=== PATIENT | female | born 1990 | race Caucasian/White ===

== ENCOUNTER → 2017-04-30 | Outpatient (CLI) | payer BC, OTHER ==
[~2017-04-30] MED LIST: AMOXICILLIN 25250 MG PO; DIABETA2.5 MG PO; LABETALOL HCL200 MG PO; PRENATAL PLUS1 TA1 PO
[2017-04-30 11:51] LABS: URINE COLLECTION TIME 24 HOURS
[2017-04-30 11:52] LABS: URINE TOTAL PROTEIN CONC 248 mg/24 HR (40-90)
== END ==
LOC: LAB 11:17
PROVIDERS: Nurse Practitioner Obstetrics & Gynecology
DX: O13.9 Gestational [pregnancy-induced] hypertension without significant proteinuria, unspecified trimester (principal)

== ENCOUNTER 2017-05-01 09:01 | Observation (INO) | payer BC, OTHER ==
[~2017-05-01] VITALS: Ht 152.4 cm; Wt 82.1 kg
[2017-05-01] VITALS (14 sets, daily range): BP systolic 117–161; BP diastolic 59–101
[~2017-05-01 09:01] MED LIST changes: -LABETALOL HCL200 MG PO; -PRENATAL PLUS1 TA1 PO
[2017-05-01] MEDS ORDERED: PRENATAL PLUS1 TA1 PO (09:28)
[2017-05-01 09:54] LABS: HEMOGLOBIN 12.3 g/dL (12.2-16.2); LYMPH # 1.8 K/mm3 (0.7-4.5); LYMPH % 17.9 % (10-50.0)
[2017-05-01 10:07] LABS: ABO BLOOD TYPE O; RH BLOOD TYPE POSITIVE
[2017-05-02 01:31] VITALS: BP 119/67
--- NOTE | 2017-05-02 08:01 | ACUTE CARE PROGRESS NOTE (QUA) ---
Progress Notes Subjective Date 05/02/17 Time 0759 Note She seems to be doing a little better this morning. She is eating and drinking and ambulating. Her headache has completely resolved. Her blood pressures have normalized. She is taking labetalol 200 mg twice a day. All of her lab work was normal as well. Patient/family reports: feeling better, no complaints Objective Findings Last VS-Temp:98.3 B/P:119/67 Pulse:72 Resp:17 SaO2: Last weight lbs:181 oz:0 K.101 Method:Floor Scales Laboratory Tests 05/02/17 0622: POC Glucose 132 H 05/01/17 0940: MCH 30.9 05/01/17 0940: Sodium 136, Potassium 3.8, Chloride 103, Carbon Dioxide 24, BUN 7, Creatinine 0.4 L, Estimated Creat Clear 274 H, Estimated GFR (MDRD) 191, Glucose 117 H, Uric Acid 4.5, Calcium 8.9, AST 28, ALT 38, PT 9.4, INR 0.87 L, APTT 24.7, Fibrinogen 500.0 H, D-Dimer 982 *H, WBC 10.2, RBC 3.98 L, Hgb 12.3, Hct 35.9 L, MCV 90.1, RDW 12.6, Plt Count 229, MPV 9.1, Gran % 76.2, Gran # 7.8, Lymphocytes % 17.9, Monocytes % 5.1, Eosinophils % 0.8, Basophils % 0.1, Lymphocytes # 1.8, Monocytes # 0.5, Eosinophils # 0.1, Basophils # 0.0, PUBS MCHC 34.3, Antibody Screen NEGATIVE, Miscellaneous Test POSITIVE Exam General appearance: normal appearance, alert, awake, no acute distress Reviewed: vital signs, lab results Assessment/Plan Problem List 1. induced hypertension, antepartum Patient condition Stable Plan: continue current care, initiate discharge plan This inpt stay is expected to cross 2 MNs from start of care No Comments: All of her blood work is normal. Her blood pressures of now stabilized on bed rest and labetalol 200 mg twice a day. We will plan to send her home today. I'll follow up with her in 48 hours. at 0801
[2017-05-02 08:03] VITALS: BP 130/78
--- NOTE | 2017-05-02 08:04 | Discharge Summary ---
Discharge Summary Admission date: 05/01/17 Discharge date: 05/02/17 Discharge diagnoses: Mild -induced hypertension, chronic hypertension Clinical note: She is a 26-year-old 1 now para 0 who was 33 weeks gestational age. She was seen in my office with a headache and her blood pressure was elevated in the 160/100 range. As result of that we elected to admit her for -induced hypertension workup. Course in hospital: She had a 24-hour urine that showed a normal amount of protein in the urine. All of her blood work was normal. She started labetalol 200 mg twice a day and her blood pressures are now in the 110-120/60-70 range. Her headache has completely resolved. Her reflexes are normal. There was no clonus. Since she's doing better today. We will plan to send her home. She also received steroids while hospitalized. Plans for ongoing care: She is discharged home to follow-up with me in approximately 48 hours time. Discharge medications She'll continue with her vitamins and iron. She was given a perception for labetalol 200 mg twice daily. DC/follow-up instructions She will continue on bedrest and will follow up with me. Condition at discharge Stable and improved at 0803
[2017-05-02] MEDS ORDERED: LABETALOL HCL200 MG PO (08:05)
--- OUTSIDE RECORDS SUMMARY | 2017-05-24 02:57 | External Medical Summary Rpt ---
Author Author [employer] Organization [employer] Address Unknown Phone Unavailable Purpose Continuity of Care Document - through 2016
--- OUTSIDE RECORDS SUMMARY | 2017-05-24 02:57 | External Medical Summary Rpt ---
Author Author , MADY EARL Address Unknown Phone [email or web address] Purpose Continuity of Care Document - 03-22-2017 through 2016 Problems Code Diagnosis DOS Provider Status O24.419 Gestational diabetes mellitus in , unspecified control Results Labs Lab Lab Date Result Refere Interp Status Commen Order Detail nces retati t Range on Urinalysis dipstick W Reflex Microscopic panel in Urine (05-17-2017 16:04) Amorpho 1+ NONE complet us 017 ed sedimen 16:04 t [Presen ce] in Urine sedimen t by Light microsc opy Bacteri 1+ O complet a 017 ed [Presen 16:04 ce] in Urine sedimen t by Light microsc opy Erythro 5-10 0 complet cytes 017 ed [Presen 16:04 ce] in Urine sedimen t by Light microsc opy Epithel OCC 0#/hp complet ial 017 f - ed cells.s 16:04 5#/hp quamous f [Presen ce] in Urine sedimen t by Microsc opy high power field Urinalysis dipstick W Reflex Microscopic panel in Urine (05-17-2017 16:04) Appeara CLEAR CLEAR complet nce of 017 ed Urine 16:04 Bilirub NEGATIV NEG complet in 017 E ed [Presen 16:04 ce] in Urine by Test strip Erythro TRACE-L NEG complet cytes 017 YSED ed [Presen 16:04 ce] in Urine Color YELLOW YELLOW complet of 017 ed Urine 16:04 Ketones NEGATIV NEG complet 017 E ed [Presen 16:04 ce] in Urine by Automat ed test strip Mucus NEGATIV NEG complet [Presen 017 E ed ce] in 16:04 Urine sedimen t by Light microsc opy Nitrite NEGATIV NEG complet 017 E ed [Presen 16:04 ce] in Urine by Test strip Urobili 05-17-2 0.2 NEG complet nogen 017 ed [Presen 16:04 ce] in Urine by Test strip Blood type & Indirect antibody screen panel in Blood (05-01-2017 09:40) Blood 05-01- NEGATIV NEGATIV complet group 017 E E ed antibod 09:40 y screen [Presen ce] in Serum or Plasma Rh POSITIV complet [Type] 017 E ed in 09:40 Blood ABO 05-01-2 O complet group 017 ed [Type] 09:40 in Blood Urinalysis dipstick W Reflex Microscopic panel in Urine (04-28-2017 15:40) Bacteri OCC O complet a 017 ed [Presen 15:40 ce] in Urine sedimen t by Light microsc opy Erythro NONE 0 complet cytes 017 ed [Presen 15:40 ce] in Urine sedimen t by Light microsc opy Epithel 10-20 0#/hp complet ial 017 f - ed cells.s 15:40 5#/hp quamous f [Presen ce] in Urine sedimen t by Microsc opy high power field Urinalysis dipstick W Reflex Microscopic panel in Urine (04-28-2017 15:40) Appeara CLEAR CLEAR complet nce of 017 ed Urine 15:40 Bilirub NEGATIV NEG complet in 017 E ed [Presen 15:40 ce] in Urine by Test strip Erythro NEGATIV NEG complet cytes 017 E ed [Presen 15:40 ce] in Urine Color YELLOW YELLOW complet of 017 ed Urine 15:40 Ketones NEGATIV NEG complet 017 E ed [Presen 15:40 ce] in Urine by Automat ed test strip Mucus NEGATIV NEG complet [Presen 017 E ed ce] in 15:40 Urine sedimen t by Light microsc opy Nitrite NEGATIV NEG complet 017 E ed [Presen 15:40 ce] in Urine by Test strip Urobili 0.2 NEG complet nogen 017 ed [Presen 15:40 ce] in Urine by Test strip Influenza virus A+B Ag [Presence] in Unspecified specimen (04-28-2017 15:40) Influen NOT NOT complet za 017 DETECTE DETECTD ed virus A 15:40 D Ag [Presen ce] in Unspeci fied specime n Influen NOT NOT complet za 017 DETECTE DETECTD ed virus B 15:40 D Ag [Presen ce] in Unspeci fied specime n Glucose [Mass/volume] in Serum or Plasma --3 hours post XXX challenge (03-22-2017 07:05) Glucose 1+ complet 017 ed [Presen 07:05 ce] in Urine by Test strip Glucose 3+ complet 017 ed [Presen 07:05 ce] in Urine by Test strip --2 hours post dose glucose Glucose 2+ complet 017 ed [Presen 07:05 ce] in Urine by Test strip --3 hours post dose glucose Glucose NEGATIV complet 017 E ed [Presen 07:05 ce] in Urine by Automat ed test strip
--- OUTSIDE RECORDS SUMMARY | 2017-05-24 02:57 | External Medical Summary Rpt ---
Demographics Preferred Language Upper Sorbian Marital Status Unknown Hindu Affiliation Unknown Race Unknown Ethnic Group Unknown Author MADY Bullock Address Unknown Phone Immunization No patient found.
--- OUTSIDE RECORDS SUMMARY | 2017-05-24 02:57 | External Medical Summary Rpt ---
Demographics Preferred Language Frisian Marital Status Unknown Gnosticist Affiliation Unknown Race Unknown Ethnic Group Unknown Author MADY Bullock Address Unknown Phone Immunization No patient found.
--- OUTSIDE RECORDS SUMMARY | 2017-05-24 02:57 | External Medical Summary Rpt ---
Author Author , MADY EARL Address Unknown Phone [email or web address] Purpose Continuity of Care Document - 03-22-2017 [...]
--- OUTSIDE RECORDS SUMMARY | 2017-05-24 02:59 | External Medical Summary Rpt ---
Author Author [facility] Kateryna, [employer] Address Unknown Phone Unavailable Results Creatinine 24H renal clearance panel Observa Value Referen Units Interpr Notes Date tion ce etation Range Creatinin 0.55 - mg/dL Low No Oct 5 e 1.02 informati 2017 9:37 [Mass/vol on in AM ume] in source Serum or data Plasma Creatinin 600 - mg/24HR Normal No Oct 5 e 1600 informati 2016 9:37 [Mass/vol on in AM ume] in source Urine data Creatine No mg/dL Normal No Oct 5 [Mass/vol informati informati 2017 9:37 ume] in on in on in AM Urine source source data data Creatinin 70 - 156 ml/min No No Oct 5 e renal informati informati 2017 9:37 clearance on in on in AM in source source unspecifi data data ed time Creatinin No HOURS No No Oct 5 e renal informati informati informati 2016 9:37 clearance on in on in on in AM in source source source unspecifi data data data ed time Volume of 600 - mL Normal No Oct 5 Urine 1600 informati 2016 9:37 on in AM source data Protein [Mass/time] in 24 hour Urine Observa Value Referen Units Interpr Notes Date tion ce etation Range Creatinin No HOURS No No Oct 5 e renal informati informati informati 2016 9:37 clearance on in on in on in AM in source source source unspecifi data data data ed time Protein 40 - 90 mg/24_HR High No Oct 5 [Mass/vol informati 2016 9:37 ume] in on in AM 24 hour source Urine data Volume of 600 - mL Normal No Oct 5 Urine 1600 informati 2016 9:37 on in AM source data Urinalysis dipstick W Reflex Microscopic panel in Urine Observa Value Referen Units Interpr Notes Date tion ce etation Range Collected by nurse? Y Hold specimen in OE? N Appeara CLEAR CLEAR No No No Oct 4 nce of informa informa informa 2017 Urine tion in tion in tion in 4:04 PM source source source data data data Amorpho 1+ NONE No No No May 17 us informa informa informa 2017 sedimen tion in tion in tion in 4:04 PM t source source source [Presen data data data ce] in Urine sedimen t by Light microsc opy Bacteri 1+ O No No No May 17 a informa informa informa 2016 [Presen tion in tion in tion in 4:04 PM ce] in source source source Urine data data data sedimen t by Light microsc opy Bilirub NEGATIV NEG No No No May 17 in E informa informa informa 2016 [Presen tion in tion in tion in 4:04 PM ce] in source source source Urine data data data by Test strip Erythro TRACE-L NEG No No No May 17 cytes YSED informa informa informa 2016 [Presen tion in tion in tion in 4:04 PM ce] in source source source Urine data data data Color YELLOW YELLOW No No No May 17 of informa informa informa 2016 Urine tion in tion in tion in 4:04 PM source source source data data data Glucose NEG No No No May 17 [Mass/vol informati informati informati 2016 4:04 ume] in on in on in on in PM Urine by source source source Test data data data strip Ketones NEGATIV NEG mg/dL No No May 17 E informa informa 2016 [Presen tion in tion in 4:04 PM ce] in source source Urine data data by Automat ed test strip Mucus NEGATIV NEG No No No May 17 [Presen E informa informa informa 2016 ce] in tion in tion in tion in 4:04 PM Urine source source source sedimen data data data t by Light microsc opy Nitrite NEGATIV NEG No No No May 17 E informa informa informa 2016 [Presen tion in tion in tion in 4:04 PM ce] in source source source Urine data data data by Test strip pH of 5.0 - 8.5 No Normal No May 17 Urine informati informati 2017 4:04 on in on in PM source source data data Protein NEG mg/dL No No May 4 [Mass/vol informati informati 2017 4:04 ume] in on in on in PM Urine by source source Automated data data test strip Erythro 5-10 0 rbc/hpf No No May 17 cytes informa informa 2016 [Presen tion in tion in 4:04 PM ce] in source source Urine data data sedimen t by Light microsc opy Specific 1.005 - No Normal No May 17 gravity 1.030 informati informati 2017 4:04 of Urine on in on in PM source source data data Epithel OCC 0 - 5 #/hpf No No May 17 ial informa informa 2017 cells.s tion in tion in 4:04 PM quamous source source data data [Presen ce] in Urine sedimen t by Microsc opy high power field Urobili 0.2 NEG E.U./dL No No May 17 nogen informa informa 2016 [Presen tion in tion in 4:04 PM ce] in source source Urine data data by Test strip Leukocyte O wbc/hpf No No May 17 s informati informati 2017 4:04 [#/volume on in on in PM ] in source source Urine data data Urinalysis dipstick W Reflex Microscopic panel in Urine Observa Value Referen Units Interpr Notes Date tion ce etation Range Collected by nurse? Y Hold specimen in OE? N Appeara CLEAR CLEAR No No No May 17 nce of informa informa informa 2016 Urine tion in tion in tion in 4:04 PM source source source data data data Bilirub NEGATIV NEG No No No May 17 in E informa informa informa 2016 [Presen tion in tion in tion in 4:04 PM ce] in source source source Urine data data data by Test strip Erythro TRACE-L NEG No No No May 17 cytes YSED informa informa informa 2016 [Presen tion in tion in tion in 4:04 PM ce] in source source source Urine data data data Color YELLOW YELLOW No No No May 17 of informa informa informa 2017 Urine tion in tion in tion in 4:04 PM source source source data data data Glucose NEG No No No May 17 [Mass/vol informati informati informati 2017 4:04 ume] in on in on in on in PM Urine by source source source Test data data data strip Ketones NEGATIV NEG mg/dL No No May 17 E informa informa 2016 [Presen tion in tion in 4:04 PM ce] in source source Urine data data by Automat ed test strip Mucus NEGATIV NEG No No No May 17 [Presen E informa informa informa 2016 ce] in tion in tion in tion in 4:04 PM Urine source source source sedimen data data data t by Light microsc opy Nitrite NEGATIV NEG No No No May 17 E informa informa informa 2016 [Presen tion in tion in tion in 4:04 PM ce] in source source source Urine data data data by Test strip pH of 5.0 - 8.5 No Normal No May 17 Urine informati informati 2017 4:04 on in on in PM source source data data Protein NEG mg/dL No No May 17 [Mass/vol informati informati 2016 4:04 ume] in on in on in PM Urine by source source Automated data data test strip Specific 1.005 - No Normal No May 17 gravity 1.030 informati informati 2016 4:04 of Urine on in on in PM source source data data Urobili 0.2 NEG E.U./dL No No May 17 nogen informa informa 2016 [Presen tion in tion in 4:04 PM ce] in source source Urine data data by Test strip Fibrin D-dimer FEU [Mass/volume] in Platelet poor plasma Observa Value Referen Units Interpr Notes Date ti ce etation Range Fibrin 0 - 400 ng/mL High May 16 D-dimer alert NOTIFICAT 2017 FEU ION 11:55 AM [Mass/vol RESULT ume] in Bria Platelet neThe poor D-Dimer plasma values are presented in units of mass(ng/m L) ofD-Dimer units(DDU ).This test has been FDA approved as an aid in the assessmen tand evaluatio n of suspected DIC, and thromboem bolic eventsinc luding PE and DVT. However, it does not have approvalf or cut-off values for the exclusion of these condition s. Fibrinogen [Mass/volume] in Platelet poor plasma by Coagulation assay Observa Value Referen Units Interpr Notes Date tion ce etation Range Fibrinoge 204.2 - mg/dL High No May 3 n 499.8 informati 2016 [Mass/vol on in 11:55 AM ume] in source Platelet data poor plasma by Coagulati on assay INR in Blood by Coagulation assay Observa Value Referen Units Interpr Notes Date tion ce etation Range INR in 0.9 - 1.1 No Low INDICATIO Oct 3 Blood by informati N 2017 Coagulati on in 11:55 AM on assay source INR data RANGETHER APY FOR DVT, PE, ATRIAL FIB; 2.0 - 3.0PROPHY LAXIS FOR VTETHERAP Y FOR MECHANICA L HEART 2.5 - 3.5VALVE; PREVENTIO N OF SYSTEMICE MBOLISM SECONDARY TO AMI Prothromb 9.4 - SECONDS Low No May 3 in time 11.8 informati 2016 (PT) in on in 11:55 AM Platelet source poor data plasma by Coagulati on assay Activated partial thrombplastin time (aPTT) in Platelet poor plasma by Coagulation assay Observa Value Referen Units Interpr Notes Date tion ce etation Range Activated 23.6 - SECONDS Normal No May 3 partial 34.0 ati 2016 thrombpla on in 11:55 AM stin time source (aPTT) data in Platelet poor plasma by Coagulati on assay Basic metabolic panel in Blood Observa Value Referen Units Interpr Notes Date tion ce etation Range Urea 7 - 18 mg/dL Normal No May 3 nitrogen informati 2016 [Mass/vol on in 11:55 AM ume] in source Serum or data Plasma Calcium 8.5 - mg/dL Normal No May 3 [Mass/vol 10.1 informati 2016 ume] in on in 11:55 AM Serum or source Plasma data Chloride 98 - 107 mmoL/L Normal No May 3 [Moles/vo informati 2017 lume] in on in 11:55 AM Serum or source Plasma data Carbon 21.0 - mmoL/L Normal No May 3 dioxide, 32.0 informati 2016 total on in 11:55 AM [Moles/vo source lume] in data Serum or Plasma Creatinin 0.55 - mg/dL Low No Oct 3 e 1.02 informati 2016 [Mass/vol on in 11:55 AM ume] in source Serum or data Plasma Estimated 59- ML/MIN No REFERENCE Oct 3 informati RANGE: 2017 glomerula on in >60 11:55 AM r source ML/MIN/1. filtratio data 73 SQUARE n rate METERSIf (GF this patient is -A merican, then multiply theresult by 1.210. Glucose 74 - 106 mg/dL Low No May 3 [Mass/vol informati 2016 ume] in on in 11:55 AM Serum or source Plasma data Potassium 3.5 - 5.1 mmoL/L Normal No May 16 inform2016 [Moles/vo on in 11:55 AM lume] in source Serum or data Plasma Sodium 136 - 145 mmoL/L Normal No May 3 [Moles/vo informati 2016 lume] in on in 11:55 AM Serum or source Plasma data Aspartate aminotransferase [Enzymatic activity/volume] in Serum or Plasma Observa Value Referen Units Interpr Notes Date tion ce etation Range Aspartate 15 - 37 U/L Normal No May 16 inform2016 aminotran on in 11:55 AM sferase source [Enzymati data c activity/ volume] in Serum or Plasma Alanine aminotransferase [Enzymatic activity/volume] in Serum or Plasma Observa Value Referen Units Interpr Notes Date tion ce etation Range Alanine 12 - 78 U/L Normal No May 16 aminotran inform2016 sferase on in 11:55 AM [Enzymati source c data activity/ volume] in Serum or Plasma Urate [Mass/volume] in Serum or Plasma Observa Value Referen Units Interpr Notes Date tion ce etation Range Urate 2.6 - 7.2 mg/dL Normal No May 3 [Mass/vol informati 2016 ume] in on in 11:55 AM Serum or source Plasma data CBC W Auto Differential panel in Blood Observa Value Referen Units Interpr Notes Date tion ce etation Range Basophils 0 - 0.2 K/MM3 Normal No May 162016 [#/volume on in 11:55 AM ] in source Blood by data Automated count Basophils 0.1 - 2.0 % Normal No May 16 /100 informati 2016 leukocyte on in 11:55 AM s in source Blood by data Automated count Eosinophi 0.0 - 0.4 K/mm3 Normal No May 16 ls 2016 [#/volume on in 11:55 AM ] in source Blood by data Automated count Eosinophi 0.1 - % Normal No May 16 ls/100 12.0 informati 2016 leukocyte on in 11:55 AM s in source Blood by data Automated count Granulocy 1.8 - 7.8 K/mm3 Normal No May 16 susana inform2016 [#/volume on in 11:55 AM ] in source Blood by data Automated count Granulocy 37.0 - % Normal No May 16 susana/100 80.0 inform2016 leukocyte on in 11:55 AM s in source Blood by data Automated count Hematocri 37.0 - % Normal No May 16 t [Volume 47.0 informati 2016 on in 11:55 AM Fraction] source of Blood data Hemoglobi 12.2 - g/dL Normal No May 16 n 16.2 informati 2016 [Mass/vol on in 11:55 AM ume] in source Blood data Lymphocyt 0.7 - 4.5 K/mm3 Normal No May 16 es inform2016 [#/volume on in 11:55 AM ] in source Unspecifi data ed specimen by Automated count Lymphocyt 10 - 50.0 % Normal No May 16 es inform2016 [#/volume on in 11:55 AM ] in source Unspecifi data ed specimen by Automated count Erythrocy 27 - 31.2 pg Normal No May 16 te mean 2016 corpuscul on in 11:55 AM ar source hemoglobi data n [Entitic mass] Erythrocy 31.8 - g/dl Normal No May 16 te mean 35.4 inform2016 corpuscul on in 11:55 AM ar source hemoglobi data n concentra tion [Mass/vol ume] by Automated count Erythrocy 82.2 - fl Normal No May 16 te mean 97.8 inform2016 corpuscul on in 11:55 AM ar volume source [Entitic data volume] by Automated count Monocytes 0.1 - 1.0 K/mm3 Normal No May 16 inform2016 [#/volume on in 11:55 AM ] in source Blood by data Automated count Monocytes 1.7 - 9.3 % High No May 16 /100 inform2016 leukocyte on in 11:55 AM s in source Blood by data Automated count Platelets 142 - 424 K/mm3 Normal No May 16 inform2016 [#/volume on in 11:55 AM ] in source Blood data Erythrocy 4.2 - 5.4 M/mm3 Low No May 16 susana informati 2016 [#/volume on in 11:55 AM ] in source Amniotic data fluid Erythrocy 11.5 - % Normal No May 16 te 17.5 informati 2016 distribut on in 11:55 AM ion width source [Entitic data volume] by Automated count Leukocyte 4.8 - K/MM3 Normal No May 3 s 10.8 informati 2016 [#/volume on in 11:55 AM ] in source Blood data Glucose [Mass/volume] in Capillary blood by Glucometer Observa Value Referen Units Interpr Notes Date tion ce etation Range Glucose 70 - 110 mg/dl High No Sep 19 [Mass/vol informati 2017 6:22 ume] in on in AM Capillary source blood by data Glucomete r Fibrin D-dimer FEU [Mass/volume] in Platelet poor plasma Observa Value Referen Units Interpr Notes Date tion ce etation Range Fibrin 0 - 400 ng/mL High Apr 18 D-dimer alert NOTIFICAT 2017 9:40 FEU ION AM [Mass/vol RESULT ume] in Bria Platelet neThe poor D-Dimer plasma values are presented in units of mass(ng/m L) ofD-Dimer units(DDU ).This test has been FDA approved as an aid in the assessmen tand evaluatio n of suspected DIC, and thromboem bolic eventsinc luding PE and DVT. However, it does not have approvalf or cut-off values for the exclusion of these condition s. Fibrinogen [Mass/volume] in Platelet poor plasma by Coagulation assay Observa Value Referen Units Interpr Notes Date tion ce etation Range Fibrinoge 204.2 - mg/dL High No Apr 18 n 499.8 informati 2016 9:40 [Mass/vol on in AM ume] in source Platelet data poor plasma by Coagulati on assay INR in Blood by Coagulation assay Observa Value Referen Units Interpr Notes Date tion ce etation Range INR in 0.9 - 1.1 No Low INDICATIO Sep 18 Blood by informati N 2017 9:40 Coagulati on in AM on assay source INR data RANGETHER APY FOR DVT, PE, ATRIAL FIB; 2.0 - 3.0PROPHY LAXIS FOR VTETHERAP Y FOR MECHANICA L HEART 2.5 - 3.5VALVE; PREVENTIO N OF SYSTEMICE MBOLISM SECONDARY TO AMI Prothromb 9.4 - SECONDS Normal No Sep 18 in time 11.8 informati 2017 9:40 (PT) in on in AM Platelet source poor data plasma by Coagulati on assay Activated partial thrombplastin time (aPTT) in Platelet poor plasma by Coagulation assay Observa Value Referen Units Interpr Notes Date tion ce etation Range Activated 23.6 - SECONDS Normal No Sep 18 partial 34.0 informati 2017 9:40 thrombpla on in AM stin time source (aPTT) data in Platelet poor plasma by Coagulati on assay Blood type & Indirect antibody screen panel in Blood Observa Value Referen Units Interpr Notes Date tion ce etation Range Blood NEGATIV NEGATIV No No No Sep 18 group E E informa informa informa 2017 antibod tion in tion in tion in 9:40 AM y source source source screen data data data [Presen ce] in Serum or Plasma Rh POSITIV No No No No Sep 18 [Type] E informa informa informa informa 2017 in tion in tion in tion in tion in 9:40 AM Blood source source source source data data data data ABO O No No No No Sep 18 group informa informa informa informa 2017 [Type] tion in tion in tion in tion in 9:40 AM in source source source source Blood data data data data Basic metabolic panel in Blood Observa Value Referen Units Interpr Notes Date tion ce etation Range Urea 7 - 18 mg/dL No No Sep 18 nitrogen informati informati 2017 9:40 [Mass/vol on in on in AM ume] in source source Serum or data data Plasma Calcium 8.5 - mg/dL Normal No Sep 18 [Mass/vol 10.1 informati 2017 9:40 ume] in on in AM Serum or source Plasma data Chloride 98 - 107 mmoL/L Normal No Sep 18 [Moles/vo informati 2017 9:40 lume] in on in AM Serum or source Plasma data Carbon 21.0 - mmoL/L Normal No Sep 18 dioxide, 32.0 informati 2017 9:40 total on in AM [Moles/vo source lume] in data Serum or Plasma Creatinin 0.55 - mg/dL Low No Sep 18 e 1.02 informati 2017 9:40 [Mass/vol on in AM ume] in source Serum or data Plasma Creatinin 50 - 200 ML/MIN High No Sep 18 e renal informati 2017 9:40 clearance on in AM source predicted data by Cockcroft -Gault formula Estimated 59- ML/MIN No REFERENCE Sep 18 informati RANGE: 2017 9:40 glomerula on in >60 AM r source ML/MIN/1. filtratio data 73 SQUARE n rate METERSIf (GF this patient is -A merican, then multiply theresult by 1.210. Glucose 74 - 106 mg/dL High No Sep 18 [Mass/vol informati 2016 9:40 ume] in on in AM Serum or source Plasma data Potassium 3.5 - 5.1 mmoL/L Normal No Sep 18 informati 2016 9:40 [Moles/vo on in AM lume] in source Serum or data Plasma Sodium 136 - 145 mmoL/L Normal No Sep 18 [Moles/vo informati 2016 9:40 lume] in on in AM Serum or source Plasma data Aspartate aminotransferase [Enzymatic activity/volume] in Serum or Plasma Observa Value Referen Units Interpr Notes Date tion ce etation Range Aspartate 15 - 37 U/L Normal No Sep 18 inform2016 9:40 aminotran on in AM sferase source [Enzymati data c activity/ volume] in Serum or Plasma Alanine aminotransferase [Enzymatic activity/volume] in Serum or Plasma Observa Value Referen Units Interpr Notes Date tion ce etation Range Alanine 12 - 78 U/L Normal No Sep 18 aminotran informati 2016 9:40 sferase on in AM [Enzymati source c data activity/ volume] in Serum or Plasma Urate [Mass/volume] in Serum or Plasma Observa Value Referen Units Interpr Notes Date tion ce etation Range Urate 2.6 - 7.2 mg/dL Normal No Sep 18 [Mass/vol informati 2016 9:40 ume] in on in AM Serum or source Plasma data CBC W Auto Differential panel in Blood Observa Value Referen Units Interpr Notes Date tion ce etation Range Basophils 0 - 0.2 K/MM3 Normal No Sep 18 informati 2016 9:40 [#/volume on in AM ] in source Blood by data Automated count Basophils 0.1 - 2.0 % Normal No Sep 18 /100 informati 2016 9:40 leukocyte on in AM s in source Blood by data Automated count Eosinophi 0.0 - 0.4 K/mm3 Normal No Sep 18 ls informati 2016 9:40 [#/volume on in AM ] in source Blood by data Automated count Eosinophi 0.1 - % Normal No Sep 18 ls/100 12.0 informati 2017 9:40 leukocyte on in AM s in source Blood by data Automated count Granulocy 1.8 - 7.8 K/mm3 Normal No Sep 18 susana informati 2017 9:40 [#/volume on in AM ] in source Blood by data Automated count Granulocy 37.0 - % Normal No Sep 18 susana/100 80.0 informati 2016 9:40 leukocyte on in AM s in source Blood by data Automated count Hematocri 37.0 - % Low No Sep 18 t [Volume 47.0 informati 2017 9:40 on in AM Fraction] source of Blood data Hemoglobi 12.2 - g/dL Normal No Sep 18 n 16.2 informati 2017 9:40 [Mass/vol on in AM ume] in source Blood data Lymphocyt 0.7 - 4.5 K/mm3 Normal No Sep 18 es informati 2017 9:40 [#/volume on in AM ] in source Unspecifi data ed specimen by Automated count Lymphocyt 10 - 50.0 % Normal No Sep 18 es informati 2017 9:40 [#/volume on in AM ] in source Unspecifi data ed specimen by Automated count Erythrocy 27 - 31.2 pg Normal No Sep 18 te mean informati 2017 9:40 corpuscul on in AM ar source hemoglobi data n [Entitic mass] Erythrocy 31.8 - g/dl Normal No Sep 18 te mean 35.4 informati 2017 9:40 corpuscul on in AM ar source hemoglobi data n concentra tion [Mass/vol ume] by Automated count Erythrocy 82.2 - fl Normal No Sep 18 te mean 97.8 informati 2016 9:40 corpuscul on in AM ar volume source [Entitic data volume] by Automated count Monocytes 0.1 - 1.0 K/mm3 Normal No Sep 18 informati 2017 9:40 [#/volume on in AM ] in source Blood by data Automated count Monocytes 1.7 - 9.3 % Normal No Sep 18 /100 informati 2016 9:40 leukocyte on in AM s in source Blood by data Automated count Platelet 7.4 - fl Normal No Sep 18 mean 10.4 informati 2016 9:40 volume on in AM [Entitic source volume] data in Blood by Automated count Platelets 142 - 424 K/mm3 Normal No Sep 18 informati 2017 9:40 [#/volume on in AM ] in source Blood data Erythrocy 4.2 - 5.4 M/mm3 Low No Sep 18 susana informati 2017 9:40 [#/volume on in AM ] in source Amniotic data fluid Erythrocy 11.5 - % Normal No Sep 18 te 17.5 informati 2016 9:40 distribut on in AM ion width source [Entitic data volume] by Automated count Leukocyte 4.8 - K/MM3 Normal No Sep 18 s 10.8 informati 2017 9:40 [#/volume on in AM ] in source Blood data Protein [Mass/time] in 24 hour Urine Observa Value Referen Units Interpr Notes Date tion ce etation Range Creatinin No HOURS No No Sep 17 e renal informati informati informati 2017 clearance on in on in on in in source source source unspecifi data data data ed time Protein 40 - 90 mg/24_HR High 04/30/17 Sep 17 [Mass/vol 1152:URIN 2017 ume] in E TP CONC 24 hour Urine previousl y reported as: 15.0 L mg/24 HR Volume of 600 - mL High No Sep 17 Urine 1600 informati 2016 on in source data Protein [Mass/time] in 24 hour Urine Observa Value Referen Units Interpr Notes Date tion ce etation Range Creatinin No HOURS No No Sep 17 e renal informati informati informati 2016 clearance on in on in on in in source source source unspecifi data data data ed time Protein 40 - 90 mg/24_HR Low No Sep 17 [Mass/vol informati 2016 ume] in on in 24 hour source Urine data Volume of 600 - mL High No Sep 17 Urine 1600 informati 2016 on in source data Aspartate aminotransferase [Enzymatic activity/volume] in Serum or Plasma Observa Value Referen Units Interpr Notes Date tion ce etation Range Aspartate 15 - 37 U/L Normal No Sep 15 informati 2016 4:08 aminotran on in PM sferase source [Enzymati data c activity/ volume] in Serum or Plasma Alanine aminotransferase [Enzymatic activity/volume] in Serum or Plasma Observa Value Referen Units Interpr Notes Date tion ce etation Range Alanine 12 - 78 U/L Normal No Sep 15 aminotran informati 2017 4:08 sferase on in PM [Enzymati source c data activity/ volume] in Serum or Plasma Urate [Mass/volume] in Serum or Plasma Observa Value Referen Units Interpr Notes Date tion ce etation Range Urate 2.6 - 7.2 mg/dL Normal No Sep 15 [Mass/vol informati 2017 4:08 ume] in on in PM Serum or source Plasma data Basic metabolic panel in Blood Observa Value Referen Units Interpr Notes Date tion ce etation Range Urea 7 - 18 mg/dL Normal No Sep 15 nitrogen informati 2017 4:08 [Mass/vol on in PM ume] in source Serum or data Plasma Calcium 8.5 - mg/dL Normal No Sep 15 [Mass/vol 10.1 informati 2017 4:08 ume] in on in PM Serum or source Plasma data Chloride 98 - 107 mmoL/L Normal No Sep 15 [Moles/vo informati 2017 4:08 lume] in on in PM Serum or source Plasma data Carbon 21.0 - mmoL/L Normal No Sep 15 dioxide, 32.0 informati 2017 4:08 total on in PM [Moles/vo source lume] in data Serum or Plasma Creatinin 0.55 - mg/dL Low No Sep 15 e 1.02 informati 2017 4:08 [Mass/vol on in PM ume] in source Serum or data Plasma Creatinin 50 - 200 ML/MIN High No Sep 15 e renal informati 2017 4:08 clearance on in PM source predicted data by Cockcroft -Gault formula Estimated 59- ML/MIN No REFERENCE Sep 15 informati RANGE: 2017 4:08 glomerula on in >60 PM r source ML/MIN/1. filtratio data 73 SQUARE n rate METERSIf (GF this patient is -A merican, then multiply theresult by 1.210. Glucose 74 - 106 mg/dL Normal No Sep 15 [Mass/vol informati 2017 4:08 ume] in on in PM Serum or source Plasma data Potassium 3.5 - 5.1 mmoL/L Normal No Sep 15 informati 2017 4:08 [Moles/vo on in PM lume] in source Serum or data Plasma Sodium 136 - 145 mmoL/L Normal No Sep 15 [Moles/vo informati 2017 4:08 lume] in on in PM Serum or source Plasma data CBC W Auto Differential panel in Blood Observa Value Referen Units Interpr Notes Date tion ce etation Range Basophils 0 - 0.2 K/MM3 Normal No Sep 15 informati 2017 4:08 [#/volume on in PM ] in source Blood by data Automated count Basophils 0.1 - 2.0 % Normal No Sep 15 /100 informati 2017 4:08 leukocyte on in PM s in source Blood by data Automated count Eosinophi 0.0 - 0.4 K/mm3 Normal No Sep 15 ls informati 2016 4:08 [#/volume on in PM ] in source Blood by data Automated count Eosinophi 0.1 - % Normal No Sep 15 ls/100 12.0 informati 2017 4:08 leukocyte on in PM s in source Blood by data Automated count Granulocy 1.8 - 7.8 K/mm3 Normal No Sep 15 susana informati 2017 4:08 [#/volume on in PM ] in source Blood by data Automated count Granulocy 37.0 - % Normal No Sep 15 susana/100 80.0 informati 2016 4:08 leukocyte on in PM s in source Blood by data Automated count Hematocri 37.0 - % Low No Sep 15 t [Volume 47.0 informati 2017 4:08 on in PM Fraction] source of Blood data Hemoglobi 12.2 - g/dL Normal No Sep 15 n 16.2 informati 2017 4:08 [Mass/vol on in PM ume] in source Blood data Lymphocyt 0.7 - 4.5 K/mm3 Normal No Sep 15 es informati 2017 4:08 [#/volume on in PM ] in source Unspecifi data ed specimen by Automated count Lymphocyt 10 - 50.0 % Normal No Sep 15 es informati 2017 4:08 [#/volume on in PM ] in source Unspecifi data ed specimen by Automated count Erythrocy 27 - 31.2 pg Normal No Sep 15 te mean informati 2017 4:08 corpuscul on in PM ar source hemoglobi data n [Entitic mass] Erythrocy 31.8 - g/dl Normal No Sep 15 te mean 35.4 informati 2017 4:08 corpuscul on in PM ar source hemoglobi data n concentra tion [Mass/vol ume] by Automated count Erythrocy 82.2 - fl Normal No Sep 15 te mean 97.8 informati 2016 4:08 corpuscul on in PM ar volume source [Entitic data volume] by Automated count Monocytes 0.1 - 1.0 K/mm3 Normal No Sep 15 informati 2016 4:08 [#/volume on in PM ] in source Blood by data Automated count Monocytes 1.7 - 9.3 % Normal No Sep 15 /100 informati 2016 4:08 leukocyte on in PM s in source Blood by data Automated count Platelet 7.4 - fl Normal No Sep 15 mean 10.4 informati 2016 4:08 volume on in PM [Entitic source volume] data in Blood by Automated count Platelets 142 - 424 K/mm3 Normal No Sep 15 informati 2016 4:08 [#/volume on in PM ] in source Blood data Erythrocy 4.2 - 5.4 M/mm3 Low No Sep 15 susana informati 2016 4:08 [#/volume on in PM ] in source Amniotic data fluid Erythrocy 11.5 - % Normal No Sep 15 te 17.5 informati 2016 4:08 distribut on in PM ion width source [Entitic data volume] by Automated count Leukocyte 4.8 - K/MM3 Normal No Sep 15 s 10.8 informati 2016 4:08 [#/volume on in PM ] in source Blood data Glucose [Mass/volume] in Capillary blood by Glucometer Observa Value Referen Units Interpr Notes Date tion ce etation Range Glucose 70 - 110 mg/dl Normal No Sep 15 [Mass/vol informati 2017 3:48 ume] in on in PM Capillary source blood by data Glucomete r Urinalysis dipstick W Reflex Microscopic panel in Urine Observa Value Referen Units Interpr Notes Date tion ce etation Range Collected by nurse? N Hold specimen in OE? Y Appeara CLEAR CLEAR No No No Sep 15 nce of informa informa informa 2016 Urine tion in tion in tion in 3:40 PM source source source data data data Bacteri OCC O No No No Sep 15 a informa informa informa 2016 [Presen tion in tion in tion in 3:40 PM ce] in source source source Urine data data data sedimen t by Light microsc opy Bilirub NEGATIV NEG No No No Sep 15 in E informa informa informa 2016 [Presen tion in tion in tion in 3:40 PM ce] in source source source Urine data data data by Test strip Erythro NEGATIV NEG No No No Sep 15 cytes E informa informa informa 2017 [Presen tion in tion in tion in 3:40 PM ce] in source source source Urine data data data Color YELLOW YELLOW No No No Sep 15 of informa informa informa 2017 Urine tion in tion in tion in 3:40 PM source source source data data data Glucose NEG No No No Sep 15 [Mass/vol informati informati informati 2017 3:40 ume] in on in on in on in PM Urine by source source source Test data data data strip Ketones NEGATIV NEG mg/dL No No Sep 15 E informa informa 2017 [Presen tion in tion in 3:40 PM ce] in source source Urine data data by Automat ed test strip Mucus NEGATIV NEG No No No Sep 15 [Presen E informa informa informa 2017 ce] in tion in tion in tion in 3:40 PM Urine source source source sedimen data data data t by Light microsc opy Nitrite NEGATIV NEG No No No Sep 15 E informa informa informa 2017 [Presen tion in tion in tion in 3:40 PM ce] in source source source Urine data data data by Test strip pH of 5.0 - 8.5 No Normal No Sep 15 Urine informati informati 2017 3:40 on in on in PM source source data data Protein NEG mg/dL No No Sep 15 [Mass/vol informati informati 2017 3:40 ume] in on in on in PM Urine by source source Automated data data test strip Erythro NONE 0 rbc/hpf No No Sep 15 cytes informa informa 2017 [Presen tion in tion in 3:40 PM ce] in source source Urine data data sedimen t by Light microsc opy Specific 1.005 - No Normal No Sep 15 gravity 1.030 informati informati 2017 3:40 of Urine on in on in PM source source data data Epithel 10-20 0 - 5 #/hpf No No Sep 15 ial informa informa 2017 cells.s tion in tion in 3:40 PM quamous source source data data [Presen ce] in Urine sedimen t by Microsc opy high power field Urobili 0.2 NEG E.U./dL No No Sep 15 nogen informa informa 2017 [Presen tion in tion in 3:40 PM ce] in source source Urine data data by Test strip Leukocyte O wbc/hpf No No Sep 15 s informati informati 2017 3:40 [#/volume on in on in PM ] in source source Urine data data Urinalysis dipstick W Reflex Microscopic panel in Urine Observa Value Referen Units Interpr Notes Date tion ce etation Range Collected by nurse? N Hold specimen in OE? Y Appeara CLEAR CLEAR No No No Sep 15 nce of informa informa informa 2017 Urine tion in tion in tion in 3:40 PM source source source data data data Bilirub NEGATIV NEG No No No Sep 15 in E informa informa informa 2017 [Presen tion in tion in tion in 3:40 PM ce] in source source source Urine data data data by Test strip Erythro NEGATIV NEG No No No Sep 15 cytes E informa informa informa 2017 [Presen tion in tion in tion in 3:40 PM ce] in source source source Urine data data data Color YELLOW YELLOW No No No Sep 15 of informa informa informa 2017 Urine tion in tion in tion in 3:40 PM source source source data data data Glucose NEG No No No Sep 15 [Mass/vol informati informati informati 2017 3:40 ume] in on in on in on in PM Urine by source source source Test data data data strip Ketones NEGATIV NEG mg/dL No No Sep 15 E informa informa 2016 [Presen tion in tion in 3:40 PM ce] in source source Urine data data by Automat ed test strip Mucus NEGATIV NEG No No No Sep 15 [Presen E informa informa informa 2016 ce] in tion in tion in tion in 3:40 PM Urine source source source sedimen data data data t by Light microsc opy Nitrite NEGATIV NEG No No No Sep 15 E informa informa informa 2017 [Presen tion in tion in tion in 3:40 PM ce] in source source source Urine data data data by Test strip pH of 5.0 - 8.5 No Normal No Sep 15 Urine informati informati 2017 3:40 on in on in PM source source data data Protein NEG mg/dL No No Sep 15 [Mass/vol informati informati 2016 3:40 ume] in on in on in PM Urine by source source Automated data data test strip Specific 1.005 - No Normal No Apr 15 gravity 1.030 informati informati 2017 3:40 of Urine on in on in PM source source data data Urobili 0.2 NEG E.U./dL No No Sep 15 nogen informa informa 2016 [Presen tion in tion in 3:40 PM ce] in source source Urine data data by Test strip Influenza virus A+B Ag [Presence] in Unspecified specimen Observa Value Referen Units Interpr Notes Date tion ce etation Range Influen NOT NOT No No No Sep 15 za DETECTE DETECTD informa informa informa 2017 virus A D tion in tion in tion in 3:40 PM Ag source source source [Presen data data data ce] in Unspeci fied specime n Influen NOT NOT No No No Sep 15 za DETECTE DETECTD informa informa informa 2016 virus B D tion in tion in tion in 3:40 PM Ag source source source [Presen data data data ce] in Unspeci fied specime n Glucose [Mass/volume] in Serum or Plasma --3 hours post XXX challenge Observa Value Referen Units Interpr Notes Date tion ce etation Range Glucose No mg/dL No No Mar 22 [Mass/vol informati informati informati 2016 7:05 ume] in on in on in on in AM Serum or source source source Plasma data data data --1 hour post dose glucose Glucose 1+ No mg/ml No No Mar 22 informa informa informa 2016 [Presen tion in tion in tion in 7:05 AM ce] in source source source Urine data data data by Test strip Glucose No mg/dL No No Mar 9 [Mass/vol informati informati informati 2016 7:05 ume] in on in on in on in AM Serum or source source source Plasma data data data --2 hours post 100 g glucose PO Glucose 3+ No mg/ml No No Mar 22 informa informa informa 2016 [Presen tion in tion in tion in 7:05 AM ce] in source source source Urine data data data by Test strip --2 hours post dose glucose Glucose No mg/dL No No Mar 22 [Mass/vol informati informati informati 2016 7:05 ume] in on in on in on in AM Serum or source source source Plasma data data data --3 hours post 100 g glucose PO Glucose 2+ No mg/ml No No Mar 22 informa informa informa 2016 [Presen tion in ti in ti in 7:05 AM ce] in source source source Urine data data data by Test strip --3 hours post dose glucose Glucose 70 - 110 mg/dL Normal No Mar 22 [Mass/vol informati 2016 7:05 ume] in on in AM Serum or source Plasma data --pre 12 hour fast Glucose NEGATIV No mg/dL No No Mar 22 E informa informa informa 2016 [Presen tion in tion in tion in 7:05 AM ce] in source source source Urine data data data by Automat ed test strip
== END 2017-05-02 09:55 | disposition home or self-care (01) ==
LOC: OB 09:01
PROVIDERS: Nurse Practitioner Obstetrics & Gynecology
DX: O10.913 Unspecified pre-existing hypertension complicating pregnancy, third trimester (principal); Z3A.33 33 weeks gestation of pregnancy; O11.3 Pre-existing hypertension with pre-eclampsia, third trimester
CPT/HCPCS: G0378

== ENCOUNTER → 2017-05-16 | Outpatient (CLI) | payer BC, OTHER ==
[2017-05-16 12:20] LABS: HEMOGLOBIN 12.6 g/dL (12.2-16.2); LYMPH % 24.7 % (10-50.0)
[2017-05-16 12:21] LABS: LYMPH # 2.5 K/mm3 (0.7-4.5)
[2017-05-16 13:57] LABS: BUN 8 mg/dL (7-18)
[2017-05-16 14:01] LABS: GFR (ESTIMATED) 191 ML/MIN (59-)
== END ==
LOC: LAB 11:53
PROVIDERS: Nurse Practitioner Obstetrics & Gynecology
DX: Z34.00 Encounter for supervision of normal first pregnancy, unspecified trimester (principal)

== ENCOUNTER 2017-05-17 15:57 | Outpatient (CLI) | payer BC, OTHER ==
[~2017-05-17] VITALS: Ht 152.4 cm; Wt 83.5 kg
[~2017-05-17 15:57] MED LIST changes: +LABETALOL HCL200 MG PO; +PRENATAL PLUS1 TA1 PO
[2017-05-17 16:18] VITALS: BP 155/96
[2017-05-17 16:28] LABS: URINE BILIRUBIN - DIPSTICK NEGATIVE (NEG); URINE BLOOD TRACE-LYSED (NEG)
[2017-05-17 16:44] LABS: URINE SQUAMOUS CELLS OCC #/hpf (0-5)
== END 2017-05-17 17:10 | disposition home or self-care (01) ==
LOC: OBOUT 15:57 → OB 15:57 → OBOUT 17:10
PROVIDERS: Nurse Practitioner Obstetrics & Gynecology
DX: O26.93 Pregnancy related conditions, unspecified, third trimester (principal); Z3A.35 35 weeks gestation of pregnancy; M54.5 Low back pain; R39.89 Other symptoms and signs involving the genitourinary system

== ENCOUNTER → 2017-05-18 | Outpatient (CLI) | payer BC, OTHER ==
[2017-05-18 10:10] LABS: URINE COLLECTION TIME 24 HOURS
[2017-05-18 10:12] LABS: URINE TOTAL PROTEIN CONC 306 mg/24 HR (40-90)
== END ==
LOC: LAB 09:32
PROVIDERS: Nurse Practitioner Obstetrics & Gynecology
DX: Z34.00 Encounter for supervision of normal first pregnancy, unspecified trimester (principal)